=== PATIENT | female | born 1960 | race Two or more races ===

== ENCOUNTER → 2017-07-03 | Outpatient (CLI) | payer BC ==
[~2017-07-03] MED LIST: AMLO5TAB2 PO; FLUO20CA19 PO; LEVO200T46 PO; LEVOTAB51 PO; METO50TA7 PO; MONT10TA34 OR; OMEP20CA74 OR
== END | disposition home or self-care (01) ==
LOC: Rad HDHVI 09:11
PROVIDERS: ATTEND Internal Medicine Cardiovascular Disease
DX: J32.9 Chronic sinusitis, unspecified (principal); R50.9 Fever, unspecified; R51 Headache; E66.9 Obesity, unspecified
CPT/HCPCS: 70486